=== PATIENT | male | born 1965 ===

== ENCOUNTER 2018-07-31 13:50 | Outpatient (CLI) | payer OTHER ==
--- NOTE | 2018-07-31 14:12 | RAD ---
EXAM: Chest 2 views: HISTORY: Congestive heart failure COMPARISON: None. FINDINGS: There is a normal-sized cardiomediastinal silhouette. There is no evidence of consolidation, mass, or pleural effusion. Increased interstitial lung markings are present. The bones are unremarkable. IMPRESSION: No evidence of acute cardiopulmonary disease
== END 2018-07-31 13:51 | disposition home or self-care (01) ==
LOC: RAD-FRANK 13:50
PROVIDERS: ATTEND Internal Medicine
DX: I50.9 Heart failure, unspecified (principal)
CPT/HCPCS: 71046